=== PATIENT | male | born 1950 | race Caucasian/White ===

== ENCOUNTER 2020-11-24 16:06 | Emergency (ER) | payer OTHER, BC, SELFPAY ==
--- NOTE | ~2020-11-24 | XR_ITS ---
XR elbow RT min 3V 11/24/2020 16:39 Indication: Status post fall. Right elbow pain at the olecranon radiating of the humerus Procedure: 4 views right elbow Comparison: No prior studies for comparison. Findings: There is an ossific density dorsal to the distal aspect of the humerus, suspicious for avul segun fracture of the olecranon osteophyte. There is associated soft tissue swelling dorsally. Radial head intact. Mild degenerative changes of the elbow. Impression: 1: Ossific density proximal to the elbow in the dorsal soft tissues is suspicious for avulsion fractu re, likely originating from olecranon osteophyte. Reviewed, dictated and finalized at location B. Impression: 1: Ossific density proximal to the elbow in the dorsal soft tissues is suspicio us for avulsion fracture, likely originating from olecranon osteophyte.
[2020-11-24 16:13] VITALS: BP 151/79; PULSE 102; RESP 18; TEMP 37.1; O2SAT 97
[2020-11-24] MEDS: HYDROcodone/acetaminophen (*CRX) 5-325 MG TABLET 1 TAB PO (17:01)
--- NOTE | 2020-11-24 17:35 | ED.GENADULT ---
HPI - General Adult General Chief complaint: Extremity Injury, Upper Stated complaint: right elbow pain Time Seen by Provider: 11/24/20 16:12 Source: patient Mode of arrival: ambulatory Limitations: no limitations History of Present Illness HPI narrative: Patient presents with chief complaint of pain to the right elbow that he sustained while working. Patient states that the elbow was struck on the wall while getting up off the floor. Patient reports pain and swelling to the area. He reports pain with flexion and extension. He denies any other injuries. Patient has hydrocodone and cyclobenzaprine prescription that he can use as needed at home. He has not taken any today. He has only taking a Tylenol this morning. Related Data Home Medications Medication Instructions Recorded Confirmed amlodipine 5 mg tablet 5 mg PO DAILY 04/04/20 atorvastatin 80 mg tablet 80 mg PO DAILY 04/04/20 blood sugar diagnostic #10 each 04/04/20 cholecalciferol (vitamin D3) 25 25 mcg PO DAILY 04/04/20 mcg (1,000 unit) capsule cyclobenzaprine 10 mg tablet 10 mg PO TID 04/04/20 insulin glargine 100 unit/mL (3 45 unit SUB-Q ONCE ml 04/04/20 mL) subcutaneous pen insulin lispro 100 unit/mL See Rx Instructions SUB-Q .COMPLEX 04/04/20 subcutaneous pen lisinopril 40 mg tablet 40 mg PO DAILY 04/04/20 omega-3 fatty acids 1,000 mg 1,000 mg PO DAILY 04/04/20 capsule omeprazole 20 mg tablet,delayed 20 mg PO DAILY 04/04/20 release oxybutynin chloride 10 mg 10 mg PO DAILY 04/04/20 tablet,extended release 24 hr pen needle, diabetic 31 gauge x #1,200 each 04/04/20/16 pioglitazone 30 mg tablet 30 mg PO DAILY 04/04/20 polyvinyl alcohol 1.4 % eye drops 1 drop EACH EYE DAILY 04/04/20 sildenafil 100 mg tablet 50 mg PO DAILY PRN tablet 04/04/20 epinephrine 11/24/20 hydrocodone-acetaminophen 11/24/20 Allergies Allergy/AdvReac Type Severity Reaction Status Date / Time NSAIDS (Non-Steroidal AdvReac Other Verified 11/24/20 16:38 Anti-Inflamma Bumble Bee Allergy Severe Anaphylaxis Uncoded 11/24/20 16:38 Review of Systems Review of Systems: Narrative: CONSTITUTIONAL: Denies fever, chills, or sweats. EYES: Denies visual changes, redness, or discharge. ENT: Denies rhinorrhea, congestion, sore throat, or otalgia. CARDIOVASCULAR: Denies chest pain, palpitations, or edema. RESPIRATORY: Denies cough or dyspnea. GASTROINTESTINAL: Denies abdominal pain, nausea, vomiting, or diarrhea. GENITOURINARY: Denies dysuria or hematuria. SKIN: Denies rash or itching. MUSCULOSKELETAL: Reports right elbow pain denies back pain, joint pain, or myalgia. NEUROLOGIC: Denies headache, numbness, dizziness, or weakness. PSYCHIATRIC: Denies anxiety or depression. [facility] Past Medical History Medical History (Updated 11/24/20 @ 16:47 by Akilah Tierney PA-C) Diabetes H/O: HTN (hypertension) Hearing loss Prostate cancer Surgical History Surgical History (Updated 04/04/20 @ 09:23 by Bettye Mccord [facility]) History of cholecystectomy History of knee replacement Family History Family History Mother Diabetes mellitus SOB (shortness of breath) CHF (congestive heart failure), NYHA class I Hypertension Sibling Hypertension Social History Social History Smoking status: Never smoker Second hand tobacco smoke exposure: No Alcohol intake: never Substance use: never Substance use type: does not use Additional living arrangements comments: - [facility] 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 HEAD: Normocephalic, atraumatic. EYES: PERRLA and EOMI. CHEST: Clear to auscultation. No respiratory distress. No wheezes rales or rhonchi HEA
== END 2020-11-24 17:12 | disposition home or self-care (01) ==
PROVIDERS: Emergency Provider Emergency Medicine; PCP Internal Medicine
DX: S59.901A Unspecified injury of right elbow, initial encounter (principal); E11.9 Type 2 diabetes mellitus without complications; I10 Essential (primary) hypertension; Z85.46 Personal history of malignant neoplasm of prostate; Z96.659 Presence of unspecified artificial knee joint; R93.6 Abnormal findings on diagnostic imaging of limbs; W22.01XA Walked into wall, initial encounter
CPT/HCPCS: 73080; 99283; A4565; A9270